=== PATIENT | female | born 2000 | race Caucasian/White ===

== ENCOUNTER 2022-08-13 00:02 | Emergency (ER) | payer BC ==
[~2022-08-13] VITALS: Ht 167.6 cm; Wt 50.8 kg
--- NOTE | 2022-08-13 00:18 | NUR ---
Patient ambulated to ER with c/o left 5th toe injury. No s/s of any distress noted at this time no bleeding noted at site, patient informed of plan of care, awaiting MD exam.
--- NOTE | 2022-08-13 00:20 | NUR ---
Dr. Wren evaluating patient at bedside. MSE in progress.
--- NOTE | 2022-08-13 00:42 | NUR ---
Patient discharged to home in stable condition. Written and verbal after care instructions given. Patient verbalizes understanding of instructions. Stressed follow up or return to ER for worsening s/s.
[2022-08-13 00:55] VITALS: BP 122/85
== END 2022-08-13 00:45 | disposition home or self-care (01) ==
LOC: ER 00:16
DX: S91.115A Laceration without foreign body of left lesser toe(s) without damage to nail, initial encounter (principal); W22.03XA Walked into furniture, initial encounter; Y92.013 Bedroom of single-family (private) house as the place of occurrence of the external cause; J45.909 Unspecified asthma, uncomplicated
CPT/HCPCS: A4663